=== PATIENT | male | born 1935 | race Caucasian/White ===

== ENCOUNTER → 2016-07-27 | Outpatient (CLI) | payer MEDICARE | LOC: MW.LAB 13:37 → EDSTATUS 13:45 | PROVIDERS: ATTEND Internal Medicine Hematology & Oncology | DX: C61 Malignant neoplasm of prostate (principal) | CPT/HCPCS: 80053; 84153; 85025 ==

== ENCOUNTER 2016-08-11 09:53 | Emergency (ER) | payer MEDICARE ==
[2016-08-11] MEDS ORDERED: Sodium Chloride 0.9% 1,000 ML IV ONE (10:08)
[2016-08-11] MEDS ORDERED: Sodium Chloride 0.9% 10 ML Syringe FLUSH PRN ×2 (10:08→10:19)
[2016-08-11] MEDS ORDERED: Sodium Chloride 0.9% 2.5 ML Syringe FLUSH PRN ×2 (10:08→10:19)
--- NOTE | 2016-08-11 10:09 | EDM.PDOC ---
ED HPI NEURO - General Chief Complaint: Neurological Problem Stated Complaint: AMBULANCE Time Seen by Provider: 08/11/16 09:55 Source of Information: Reports: Patient History Limitations: Reports: No limitations - History of Present Illness INITIAL COMMENTS - FREE TEXT/NARRATIVE: History of present illness: [] Patient is an 81-year-old male who came from [facility] by ambulance with complaint of weakness and facial asymmetry of unknown duration. On arrival patient has weakness in left upper and lower extremities. Patient's noted that yesterday after dialysis he was extremely weak and couldn't hold up a cup of tea to drink it. She put him to bed at 5 PM and last she saw him he did not have any left-sided weakness. [facility] staff did not notice he had left-sided weakness and stroke and comes were reported by EMS after their evaluation. Review of systems: As per history of present illness and below otherwise all systems reviewed and negative. Past medical history: As per history of present illness and as reviewed below otherwise noncontributory. Surgical history: As per history of present illness and as reviewed below otherwise noncontributory. Social history: No reported history of drug or alcohol abuse. Family history: As per history of present illness and as reviewed below otherwise noncontributory. Physical exam: General: Well developed, well nourished in NAD HEENT: Atraumatic, normocephalic, pupils reactive, negative for conjunctival pallor or scleral icterus, mucous membranes dry, throat clear, neck supple, nontender, trachea midline. Lungs: Clear to auscultation, breath sounds equal bilaterally, chest nontender. Heart: S1S2, regular, negative for clicks, rubs, or JVD. Abdomen: Soft, nondistended, nontender. Negative for masses or hepatosplenomegaly. Negative for costovertebral tenderness. Pelvis: Stable nontender. Genitourinary: Deferred. Rectal: Deferred. Extremities: Atraumatic, negative for cords or calf pain. Neurovascular unremarkable. Neuro: Awake, slow to respond with slurred speech, no facial asymmetry however is markedly weaker on the left upper extremity and lower extremity on exam. Diagnostics: [] CT shows no evidence of stroke. Therapeutics: [] Dehydration. Patient CT head is negative for stroke at this time. He continues to have left-sided weakness although it is slowly improving. We are unable to admit this patient here due to lack of dialysis on admission patient's , therefore we would need to transfer him for admission. The family does not wish to do this and was given the option to place him on hospice. His consulted his tool/die maker and dialysis Center and also consulted her children. All were in Agreement to place Dillon on hospice at this time. Hospice nurse came to the ER and answered all her questions Impression: [] Clinical CVA, dehydration, renal failure Plan: [] Discharged to [facility] on hospice Definitive disposition and diagnosis as appropriate pending reevaluation and review of above. - Related Data Allergies/ADRs: Allergies Allergy/AdvReac Type Severity Reaction Status Date / Time Sulfa (Sulfonamide Allergy Itching Verified 08/11/16 10:05 Antibiotics) Home Meds: Home Meds Acetaminophen with Codeine [Tylenol with Codeine #3 Tablet] 1 each PO Q4H PRN [History] Aspirin [Melanie Chewable Aspirin] 81 mg PO DAILY 11/06/13 [History] Calcium Acetate [PhosLo] 1,334 mg PO TIDMEALS 11/06/13 [History] Carvedilol [Coreg] 12.5 mg PO BID 11/06/13 [History] Clopidogrel [Plavix] 75 mg PO DAILY 11/06/13 [History] Insulin Glarg,Human.Rec.Analog [Lantus Solostar] 1 injection SQ BEDTIME [History] Isosorbide Mononitrate [Isosorbide Mononitrate ER] 60 mg PO DAILY 11/06/13 [ History] Lutein/Minerals/Vit A,C & E [Ocuvite] 1 tab PO DAILY 11/06/13 [History] Megestrol Acetate 40 mg PO BEDTIME 11/06/13 [History] Cholecalciferol (Vitamin D3) [Vitamin D3] 2,000 unit PO DAILY 05/12/16 [History] Ferrous Sulfate 325 mg PO DAILY 05/12/16 [History] Insulin Glargine,Hum.Rec.Anlog [Lantus Solostar] 12 units SUBCUT DAILY 05/12/16 [History] Losartan [Cozaar] 25 mg PO DAILY 05/12/16 [History] Magnesium Hydroxide [Milk of Magnesia] 30 ml PO Q24H PRN 05/12/16 [History] Mirtazapine 7.5 mg PO BEDTIME 05/12/16 [History] Triamcinolone Acetonide [Triamcinolone Acetonide 0.1% Crm] 1 applic TOP ASDIRECTED PRN 05/12/16 [History] predniSONE [Prednisone] 5 mg PO DAILY 05/12/16 [History] ALPRAZolam [Xanax] 0.5 mg PO MOWEFR PRN 08/11/16 [History] Acetaminophen 650 mg PO Q4H PRN 08/11/16 [History] Amino Acids/Protein Hydrolys [Prosource No Carb Liquid Pkt] 30 ml PO BID [History] Amino Acids/Protein Hydrolys [Prosource No Carb Liquid Pkt] 30 ml PO SUTUTHSA [History] Bisacodyl 10 mg RC Q24H PRN 08/11/16 [History] Loperamide HCl [Imodium A-D] 2 mg PO TID PRN 08/11/16 [History] Ondansetron [IJP: Ondansetron ODT] 4 mg PO Q4H PRN 08/11/16 [History] Sennosides/Docusate Sodium [Senna-Docusate Sodium] 1 each PO DAILY PRN 08/11/16 [History] Sevelamer Carbonate [Renvela] 1,600 mg PO TIDMEALS 08/11/16 [History] atorvaSTATin [Lipitor] 10 mg PO BEDTIME 08/11/16 [History] Past Medical History HEENT History: Reports: Cataract, Hard of hearing Cardiovascular History: Reports: Automatic implantable cardioverter defibrillators, Bypass, CAD, Cardiomyopathy, High cholesterol, Hypertension, LA , Pacemaker, Other (see below) Other Cardiovascular History: triple bypass heart suegery (11/05/99). cardiac surgery to implant dual chamber [employer] pacemaker (05/30/07) Respiratory History: Reports: Sleep apnea Other Respiratory History: no longer uses CPAP Gastrointestinal History: Reports: None, GERD Other Gastrointestinal History: h/o colon cancer long time ago, states he has several small emesis recently Genitourinary History: Reports: Dialysis, Diabetic nephropathy, Prostate disorder, Renal calculus, Other (see below) Other Genitourinary History: 15% gfr (15% kidney function), prostate ca. radical retropubic nerve-sparing prostatectomy (07/04/08) Musculoskeletal History: Reports: Back pain, chronic, Other (see below) Other Musculoskeletal History: bone Ca Neurological History: Reports: CVA, Other (see below) Other Neuro History: cerebral hemorrhage Psychiatric History: Reports: Alzheimers disease, Anxiety, Dementia, Emotional problems, Mood swings Endocrine/Metabolic History: Reports: Diabetes, type II Hematologic History: Reports: Anemia, Blood transfusion(s) Immunologic History: Reports: None Oncologic (Cancer) History: Reports: Bone, Colon, Liver, Prostate Dermatologic History: Reports: Other (see below) Other Dermatologic History: bruises easily - Infectious Disease History Infectious Disease History: Reports: None - Past Surgical History GI Surgical History: Reports: Colonoscopy, Other (see below) Social & Family History - Family History Family Medical History: Noncontributory Cardiac: Reports: LA Endocrine/Metabolic: Reports: Diabetes, type II - Tobacco Use Smoking Status *Q: Never Smoker Years of Tobacco use: 20 Second Hand Smoke Exposure: No - Caffeine Use Caffeine Use: Reports: None - Alcohol Use Days Per Week of Alcohol Use: 0 - Recreational Drug Use Recreational Drug Use: No ED ROS GENERAL - Review of Systems Review Of Systems: See Below (See history of present illness) ED EXAM, NEURO - Physical Exam Exam: See Below (History of present illness) Course - Vital Signs Last Recorded V/S: Last Vital Signs Temp 36.4 C 08/11/16 10:06 Pulse 62 08/11/16 10:45 Resp 16 08/11/16 10:45 BP 105/44 L 08/11/16 10:45 Pulse Ox 99 08/11/16 10:45 - Orders/Labs/Meds Orders: Active Orders 24 hr Category Date Time Status Assess Neurological Status [RC] ASDIRECTED Care 08/11/16 10:19 Active Blood Glucose Check, Bedside [RC] STAT Care 08/11/16 10:19 Active Cardiac Monitoring [RC] . DIRECTED Care 08/11/16 10:19 Active EKG Documentation Completion [RC] STAT Care 08/11/16 10:19 Active Height and Weight [RC] UPON Care 08/11/16 10:19 Active Initiate Acute Stroke Protocol [RC] STAT Care 08/11/16 10:19 Active NIH Stroke Scale [RC] ASDIRECTED Care 08/11/16 10:19 Active Oxygen Therapy [RC] ASDIRECTED Care 08/11/16 10:19 Active Stroke Education, General [RC] Click To Edit Care 08/11/16 10:19 Active Vital Signs [RC] Q15M Care 08/11/16 10:19 Active Sodium Chloride 0.9% [Normal Saline] 1,000 ml Med 08/11/16 10:45 Active IV ASDIRECTED Sodium Chloride 0.9% [Saline Flush] Med 08/11/16 10:08 Active 10 ml FLUSH ASDIRECTED PRN Sodium Chloride 0.9% [Saline Flush] Med 08/11/16 10:08 Active 2.5 ml FLUSH ASDIRECTED PRN Peripheral IV Insertion Adult [OM.PC] Stat Oth 08/11/16 10:07 Ordered Resuscitation Status Stat Resus Stat 08/11/16 10:19 Ordered Medication Orders Sodium Chloride (Normal Saline) 1,000 mls @ 100 mls/hr IV ASDIRECTED WALDEMAR Last Admin: 08/11/16 10:44 Dose: 100 mls/hr Sodium Chloride (Saline Flush) 10 ml FLUSH ASDIRECTED PRN PRN Reason: Keep Vein Open Last Admin: 08/11/16 10:45 Dose: 10 ml Sodium Chloride (Saline Flush) 2.5 ml FLUSH ASDIRECTED PRN PRN Reason: Keep Vein Open Last Admin: 08/11/16 10:45 Dose: 2.5 ml Labs: Laboratory Tests 08/11/16 08/11/16 08/11/16 Range/Units 10:21 10:30 10:36 WBC 8.79 (4.0-11.0) K/uL RBC 3.38 L (4.50-5.90) M/uL Hgb 10.4 L (13.0-17.0) g/dL Hct 33.0 L (38.0-50.0) % MCV 97.6 (80.0-98.0) fL MCH 30.8 (27.0-32.0) pg MCHC 31.5 (31.0-37.0) g/dL RDW Std Deviation 55.4 (28.0-62.0) fl RDW Coeff of Hiren 16 H (11.0-15.0) % Plt Count 243 (150-400) K/uL MPV 9.40 (7.40-12.00) fL Neut % (Auto) 79.4 (48.0-80.0) % Lymph % (Auto) 10.4 L (16.0-40.0) % Villalba % (Auto) 8.2 (0.0-15.0) % Eos % (Auto) 1.8 (0.0-7.0) % Baso % (Auto) 0.2 (0.0-1.5) % Neut # 7.0 H (1.4-5.7) K/uL Lymph # 0.9 (0.6-2.4) K/uL Villalba # 0.7 (0.0-0.8) K/uL Eos # 0.2 (0.0-0.7) K/uL Baso # 0.0 (0.0-0.1) K/uL Nucleated RBC % 0.0 /100WBC Nucleated RBCs # 0 K/uL INR (0.86-1.11) APTT (18.6-31.3) SEC Sodium 138 (136-146) mmol/L Potassium 4.2 (3.5-5.1) mmol/L Chloride 95 L (98-110) mmol/L Carbon Dioxide 27 (21-31) mmol/L BUN 37 H (6.0-23.0) mg/dL Creatinine 5.5 H (0.6-1.5) mg/dL Est Cr Clr Drug Dosing 9.29 mL/min Estimated GFR (MDRD) 10.0 ml/min Glucose 178 H (60-110) mg/dL Calcium 9.4 (8.8-10.8) mg/dL Total Bilirubin 0.7 (0.1-1.5) mg/dL AST 35 (5-40) IU/L ALT 13 (8-54) IU/L Alkaline Phosphatase 221 H (40-150) Total Protein 6.4 (6.0-8.0) g/dL Albumin 3.1 L (3.4-4.8) g/dL Globulin 3.3 (2.0-3.5) g/dL Albumin/Globulin Ratio 0.9 L (1.3-2.8) TSH 3rd Generation (0.47-5.0) uIU/mL Urine Color DARK YELLOW Urine Appearance SLT CLOUDY Urine pH 5.5 (5.0-8.0) Ur Specific [place] 1.020 (1.001-1.035) Urine Protein 100 (NEGATIVE) mg/dL Urine Glucose (UA) NEGATIVE (NEGATIVE) mg/dL Urine Ketones NEGATIVE (NEGATIVE) mg/dL Urine Occult Blood SMALL H (NEGATIVE) Urine Nitrite NEGATIVE (NEGATIVE) Urine Bilirubin NEGATIVE (NEGATIVE) Urine Urobilinogen 0.2 (<2.0) EU/dL Ur Leukocyte Esterase NEGATIVE (NEGATIVE) Urine RBC 1-2 (0-2/HPF) Urine WBC 1-3 (0-5/HPF) Ur Epithelial Cells RARE (NONE-FEW) Amorphous Sediment MODERATE (NEGATIVE) Urine Bacteria FEW (NEGATIVE) 08/11/16 08/11/16 Range/Units 10:36 10:36 WBC (4.0-11.0) K/uL RBC (4.50-5.90) M/uL Hgb (13.0-17.0) g/dL Hct (38.0-50.0) % MCV (80.0-98.0) fL MCH (27.0-32.0) pg MCHC (31.0-37.0) g/dL RDW Std Deviation (28.0-62.0) fl RDW Coeff of Hiren (11.0-15.0) % Plt Count (150-400) K/uL MPV (7.40-12.00) fL Neut % (Auto) (48.0-80.0) % Lymph % (Auto) (16.0-40.0) % Villalba % (Auto) (0.0-15.0) % Eos % (Auto) (0.0-7.0) % Baso % (Auto) (0.0-1.5) % Neut # (1.4-5.7) K/uL Lymph # (0.6-2.4) K/uL Villalba # (0.0-0.8) K/uL Eos # (0.0-0.7) K/uL Baso # (0.0-0.1) K/uL Nucleated RBC % /100WBC Nucleated RBCs # K/uL INR 1.22 H (0.86-1.11) APTT 28.2 (18.6-31.3) SEC Sodium (136-146) mmol/L Potassium (3.5-5.1) mmol/L Chloride (98-110) mmol/L Carbon Dioxide (21-31) mmol/L BUN (6.0-23.0) mg/dL Creatinine (0.6-1.5) mg/dL Est Cr Clr Drug Dosing mL/min Estimated GFR (MDRD) ml/min Glucose (60-110) mg/dL Calcium (8.8-10.8) mg/dL Total Bilirubin (0.1-1.5) mg/dL AST (5-40) IU/L ALT (8-54) IU/L Alkaline Phosphatase (40-150) Total Protein (6.0-8.0) g/dL Albumin (3.4-4.8) g/dL Globulin (2.0-3.5) g/dL Albumin/Globulin Ratio (1.3-2.8) TSH 3rd Generation 0.35 L (0.47-5.0) uIU/mL Urine Color Urine Appearance Urine pH (5.0-8.0) Ur Specific [place] (1.001-1.035) Urine Protein (NEGATIVE) mg/dL Urine Glucose (UA) (NEGATIVE) mg/dL Urine Ketones (NEGATIVE) mg/dL Urine Occult Blood (NEGATIVE) Urine Nitrite (NEGATIVE) Urine Bilirubin (NEGATIVE) Urine Urobilinogen (<2.0) EU/dL Ur Leukocyte Esterase (NEGATIVE) Urine RBC (0-2/HPF) Urine WBC (0-5/HPF) Ur Epithelial Cells (NONE-FEW) Amorphous Sediment (NEGATIVE) Urine Bacteria (NEGATIVE) Meds: Medications Generic Name Dose Route Start Last Admin Trade Name Freq PRN Reason Stop Dose Admin Sodium Chloride 1,000 mls @ 100 mls/hr 08/11/16 10:45 08/11/16 10:44 Normal Saline IV 100 mls/hr ASDIRECTED WALDEMAR Administration Sodium Chloride 10 ml 08/11/16 10:08 08/11/16 10:45 Saline Flush FLUSH 10 ml ASDIRECTED PRN Administration Keep Vein Open Sodium Chloride 2.5 ml 08/11/16 10:08 08/11/16 10:45 Saline Flush FLUSH 2.5 ml ASDIRECTED PRN Administration Keep Vein Open Discontinued Medications Generic Name Dose Route Start Last Admin Trade Name Freq PRN Reason Stop Dose Admin Sodium Chloride 10 ml 03/14/17 10:19 Saline Flush FLUSH ASDIRECTED PRN Keep Vein Open Sodium Chloride 2.5 ml 08/11/16 10:19 Saline Flush FLUSH ASDIRECTED PRN Keep Vein Open Departure - Departure Time of Disposition: 12:42 Disposition: DC/[facility]fer to [facility] Condition: poor Clinical Impression: Renal failure, Dehydration Stroke Qualifiers: CVA mechanism: unspecified Qualified Code(s): I63.9 - Cerebral infarction, unspecified Referrals: PCP,None [Primary Care Provider] - Forms: ED Department Discharge Additional Instructions: The following information is given to patients seen in the emergency department who are being discharged to home. This information is to outline your options for follow-up care. We provide all patients seen in our emergency department with a follow-up referral. The need for follow-up, as well as the timing and circumstances, are variable depending upon the specifics of your emergency department visit. If you don't have a primary care physician on staff, we will provide you with a referral. We always advise you to contact your personal physician following an emergency department visit to inform them of the circumstance of the visit and for follow-up with them and/or the need for any referrals to a consulting specialist. The emergency department will also refer you to a specialist when appropriate. This referral assures that you have the opportunity for follow-up care with a specialist. All of these measure are taken in an effort to provide you with optimal care, which includes your follow-up. Under all circumstances we always encourage you to contact your private physician who remains a resource for coordinating your care. When calling for follow-up care, please make the office aware that this follow-up is from your recent emergency room visit. If for any reason you are refused follow-up, please contact the [facility] Emergency Department at and asked to speak to the emergency department charge nurse. [facility] [address] [place] [id number] - My Orders Last 24 Hours: My Active Orders 08/11/16 10:07 Peripheral IV Insertion Adult [OM.PC] Stat 08/11/16 10:08 Sodium Chloride 0.9% [Saline Flush] 10 ml FLUSH ASDIRECTED PRN Sodium Chloride 0.9% [Saline Flush] 2.5 ml FLUSH ASDIRECTED PRN 08/11/16 10:19 Assess Neurological Status [RC] ASDIRECTED Blood Glucose Check, Bedside [RC] STAT Cardiac Monitoring [RC] . DIRECTED EKG Documentation Completion [RC] STAT Height and Weight [RC] UPON Initiate Acute Stroke Protocol [RC] STAT NIH Stroke Scale [RC] ASDIRECTED Oxygen Therapy [RC] ASDIRECTED Stroke Education, General [RC] Click To Edit Vital Signs [RC] Q15M Resuscitation Status Stat 08/11/16 10:45 Sodium Chloride 0.9% [Normal Saline] 1,000 ml IV ASDIRECTED - Assessment/Plan Last 24 Hours: My Active Orders 08/11/16 10:07 Peripheral IV Insertion Adult [OM.PC] Stat 08/11/16 10:08 Sodium Chloride 0.9% [Saline Flush] 10 ml FLUSH ASDIRECTED PRN Sodium Chloride 0.9% [Saline Flush] 2.5 ml FLUSH ASDIRECTED PRN 08/11/16 10:19 Assess Neurological Status [RC] ASDIRECTED Blood Glucose Check, Bedside [RC] STAT Cardiac Monitoring [RC] . DIRECTED EKG Documentation Completion [RC] STAT Height and Weight [RC] UPON Initiate Acute Stroke Protocol [RC] STAT NIH Stroke Scale [RC] ASDIRECTED Oxygen Therapy [RC] ASDIRECTED Stroke Education, General [RC] Click To Edit Vital Signs [RC] Q15M Resuscitation Status Stat 08/11/16 10:45 Sodium Chloride 0.9% [Normal Saline] 1,000 ml IV ASDIRECTED
--- NOTE | 2016-08-11 10:21 | CT ---
EXAMINATION: Non contrast CT head. Coronal and sagittal reformats. HISTORY: Stroke code FINDINGS: No evidence of intra or extra axial hemorrhage, mass, midline shift, hydrocephalus or edema. There is moderate subcortical and periventricular white matter hypodensities in generalized atrophy. No hypoattenuation changes in the major vascular territories to suggest acute infarct. No abnormal intracranial calcifications are detected. No evidence of substantial vascular calcifica tions. Paranasal sinuses and mastoid air cells are well aerated without substantial findings. Pituitary fossa appears unremarkable. The orbits and globes are symmetric. Old right lamina papyrace a fracture. Calvarium is intact. No evidence of skull fracture. IMPRESSION: 1. No acute intracranial findings. 2. Moderate generalized atrophy and small vessel ischemic changes. The above findings were called to the ER at 10:16 AM.
[2016-08-11] MEDS ORDERED: Sodium Chloride 0.9% 1,000 ML IV SCH (10:45)
[2016-08-11 10:54] VITALS: BP 105/44
--- NOTE | 2016-08-11 11:09 | CR ---
EXAMINATION: Portable chest radiograph. HISTORY: Stroke code. Comparison: 12/04/2015. FINDINGS: The trachea is midline. There is a left-sided AICD in stable positioning. Mild chronic interstitial changes are noted bilaterally. No pleural effusion or pneumothorax. Median sternotomy wires are pres ent. Aortic calcifications are present. There is a healing distal right clavicle fracture noted. IMPRESSION: Chronic interstitial prominence without an acute cardiopulmonary finding.
== END 2016-08-11 13:57 | disposition home or self-care (01) ==
LOC: MW.ED 09:53
DX: I63.9 Cerebral infarction, unspecified (principal); N19 Unspecified kidney failure; E86.0 Dehydration; I10 Essential (primary) hypertension; I25.2 Old myocardial infarction; E11.9 Type 2 diabetes mellitus without complications; K21.9 Gastro-esophageal reflux disease without esophagitis; Z88.2 Allergy status to sulfonamides; Z79.82 Long term (current) use of aspirin; Z79.899 Other long term (current) drug therapy; Z98.49 Cataract extraction status, unspecified eye
CPT/HCPCS: 36415; 70450; 71010; 80053; 81001; 84443; 85025; 85610; 85730; 93005; 96360; 96361; 99285; J7040